=== PATIENT | male | born 1995 | race Caucasian/White ===

== ENCOUNTER 2023-12-06 13:06 | Emergency (ER) | payer MEDICARE, SELFPAY ==
[2023-12-06 13:18] VITALS: BP 141/87; PULSE 71; RESP 18; TEMP 36.7; O2SAT 98
--- NOTE | 2023-12-06 13:37 | W.ED.SKABFB ---
HPI - Skin/Abscess/Foreign Bdy General: Chief complaint: Skin/Abscess/Foreign Body Stated complaint: tight chest and back from lumps Time Seen by Provider: 12/06/23 13:36 Source: patient Mode of arrival: ambulatory Limitations: no limitations History of Present Illness: Patient is a 28-year-old male who presents to ED today with complaint of a lump to his left upper chest as well as one to the right side of his back that he has had for several weeks. He feels like areas are enlarging. He states sometimes when he wakes up in the morning he will stretch and states his chest cracks . No shortness of breath or difficulty breathing. MD complaint: other ( lumps ) Onset (ago): week(s) Tetanus up to date: yes Location: chest and back Severity: mild Relieving factors: none Exacerbating factors: none Context: none Associated symptoms: Reports no associated symptoms; Deny chills or fever(s) Treatments prior to arrival: none Review of Systems Const: Denies: fever(s), chills, body aches, fatigue or malaise Card: Reports: chest pain; Denies: palpitations, irregular heart rhythm, edema, swelling of feet/ankles, lightheadedness, syncope, pre-syncope, dyspnea on exertion, orthopnea, leg pain with exertion or acrocyanosis Resp: Reports: pain on inspiration; Denies: dyspnea, productive cough, non-productive cough, wheezing, change in phlegm color, hemoptysis or chest congestion Musc: Denies: neck pain, back pain, extremity pain, extremity swelling, joint pain or joint swelling Skin/Breast: Reports: other (skin lumps ) Neuro: Denies: headache(s), numbness in extremities, weakness in extremities, sensory changes or dizziness Physical Exam Const: COMMON NORMALS: no acute distress, average body habitus, patient oriented x3, no limitations, alert and well nourished Lymph: LYMPHATIC: no lymphadenopathy noted and no lymphedema noted Chest: COMMONS NORMALS: normal inspection of the chest Chest images (male): 1. one small nickel sized subcutaneous lesion most likely a lipoma or benign cyst; similar lesion on R mid back Resp: COMMON NORMALS: normal respiratory effort and clear to auscultation bilaterally AUSCULTATION: clear to auscultation bilaterally Cardio: COMMON NORMALS: regular rate and regular rhythm RATE: regular rate RHYTHM: regular rhythm Back/Pelvis: BACK IMAGE (MALE): 1. one small nickel sized subcutaneous lesion most likely a lipoma or benign cyst; similar lesion on L anterior chest Extremity: COMMON NORMALS: normal to inspection GENERAL: Yes normal exam except as noted Neuro: ESSENCE COMA SCALE: document GCS findings Essence coma scale eye opening: Spontaneous Essence coma scale verbal response: Orientated [place] coma scale motor response: Obey commands [place] coma scale total score: 15 COMMON NORMALS: patient oriented x3 SENSORIUM/ORIENTATION: Yes alert Skin: COMMON NORMALS: no rashes or lesions noted GENERAL SKIN EXAM: no rashes or lesions noted Course Vital Signs: Vital signs: Vital Signs Temperature 98.1 F 12/06/23 13:18 Pulse Rate 71 12/06/23 13:18 Respiratory Rate 18 12/06/23 13:18 Blood Pressure 141/87 12/06/23 13:18 Pulse Oximetry 98 12/06/23 13:18 Oxygen Delivery Me thod Room Air 12/06/23 13:18 MDM - Skin/Abscess/Foreign Bdy Medicial Decision Making EKG is unremarkable. CXR preliminary read showing no acute disease. Lesions clinically appear to be cysts or other benign deposits such as lipomas. Patient is requesting primary care follow-up. Will place a case management referral for this. Medical Records I reviewed the patient's medical records. Lab Data Radiology Impressions Chest X-Ray 12/06/23 13:44 IMPRESSION: Left lower lung pneumonitis. XR interpretation done by ED provider, pending radiology final review Discharge Plan Discharge Patient Disposition: Home Clinical Impression: Subcutaneous cyst Condition: Stable Discharge Orders: Discharge ED (Routine); Ordered 12/06/23 Ordered By: Domitila Peralta Activity Restrictions/Additional Instructions: As we discussed we will get you set up to see your primary care provider for further evaluation Coding Level of Care Code ED Qualitative Executive Researcher for Ashley Gonzalez
--- NOTE | 2023-12-06 13:44 | XRR_ITS ---
PROCEDURE INFORMATION: Exam: XR Chest Exam date and time: 12/06/2023 1:50 PM Age: 28 years old Clinical indication: Pain; Angina pectoris; Additional info: Chest pain TECHNIQUE: Imaging protocol: Radiologic exam of the chest. Views: 1 view. COMPARISON: No relevant prior studies available. FINDINGS: Lungs: Left lower lung pneumonitis. Otherwise, unremarkable. Pleural spaces: Unremarkable. No pleural effusion. No pneumothorax. Heart/Mediastinum: Unremarkable. No cardiomegaly. Bones/joints: Unremarkable. XR/XR chest 1V portable [id number] IMPRESSION: Left lower lung pneumonitis.
--- NOTE | 2023-12-06 13:46 | ECG_ITS ---
[facility] Test Date: 2023-12-06 Pat Name: Hernán Meracdo Department: Room: Gender: Male Senior Cost Estimator: : 1995 Requested By: Domitila Peralta Order Number: [id number] Gaspar MD: Berenice Olmedo M.D. Measurements Intervals [place] Rate: 72 P: 19 FL: 182 QRS: 25 QRSD: 94 T: 31 QT: 350 QTc: 384 Interpretive Statements SINUS RHYTHM No previous ECG available for comparison Electronically Signed On 12-07-2023 23:06:47 CDT by Berenice Olmedo M.D. [id number]
--- NOTE | 2023-12-06 14:37 | DCPLANNER ---
A message was sent to [facility] on 12/06/23 at 7239. [facility] to contact patient for appt
== END 2023-12-06 14:49 | disposition home or self-care (01) ==
PROVIDERS: Emergency Provider Physician Assistant
DX: L72.8 Other follicular cysts of the skin and subcutaneous tissue (principal)
CPT/HCPCS: 71045; 93005; 99284